=== PATIENT | male | born 1980 | race Two or more races ===

== ENCOUNTER 2023-10-06 10:11 | Emergency (ER) | payer OTHER ==
[~2023-10-06] VITALS: Ht 175.3 cm; Wt 79.5 kg
[2023-10-06 10:20] VITALS: TEMP 98.1
[2023-10-06 12:14] VITALS: BP 135/80; PULSE 80; RESP 16
[2023-10-06] MEDS: IBUPROFEN 600 MG TABLET PO ONE (13:09)
[2023-10-06] MEDS ORDERED: IBUP-1554 PO (14:26)
== END 2023-10-06 14:35 | disposition home or self-care (01) ==
LOC: EMS 10:12
DX: M48.32 Traumatic spondylopathy, cervical region (principal); V89.2XXA Person injured in unspecified motor-vehicle accident, traffic, initial encounter; Y93.89 Activity, other specified; Y92.89 Other specified places as the place of occurrence of the external cause; Y99.8 Other external cause status
CPT/HCPCS: 72040; 72070; 99284; Z7502; Z7610

== ENCOUNTER 2023-11-29 22:37 | Emergency (ER) | payer OTHER ==
[~2023-11-29] VITALS: Ht 177.8 cm; Wt 72.0 kg
[~2023-11-29 22:37] MED LIST: IBUP-1554 PO
[2023-11-29 23:03] VITALS: TEMP 101.6
[2023-11-29] MEDS ORDERED: 0.9% SODIUM CHLORIDE 10 ML SYRINGE IVP PRN ×2 (23:15)
[2023-11-29] MEDS: CefTRIAXone 1 GM/DEXTROSE 50 ML IV ONE (23:41)
[2023-11-29] MEDS: SODIUM CHLORIDE 0.9% 2,150 ML IV ONE (23:41)
[2023-11-29 23:50] LABS: EOSINOPHILS % (AUTO) 2.2 % (1.0-6.0); HEMATOCRIT 49.1 % (41-53); HEMOGLOBIN 16.8 g/dL (13.5-17.5); LYMPHOCYTES # (AUTO) 1.2 K/uL (1.0-4.8); LYMPHOCYTES % (AUTO) 17.6 % (22.0-44.0); MEAN CORPUSCULAR HEMOGLOBIN 33.7 pg (26.0-34.0); MEAN CORPUSCULAR HGB CONC 34.2 G/dL (31.0-37.0); MEAN CORPUSCULAR VOLUME 99 fL (80-100); MONOCYTES # (AUTO) 0.6 K/uL (0.1-1.0); MONOCYTES % (AUTO) 8.8 % (2.0-9.0); NEUTROPHILS # (AUTO) 4.7 K/uL (1.8-7.7); NEUTROPHILS % (AUTO) 70.4 % (40.0-70.0); PLATELET COUNT (AUTO) 197 K/uL (150-450); RED BLOOD CELL COUNT(AUTO) 4.98 MIL/uL (4.50-5.90); WHITE BLOOD COUNT (AUTO) 6.6 K/uL (4.5-11.0)
[2023-11-29 23:54] LABS: INR 1.1 (0.9-1.1); PROTHROMBIN TIME 11.3 SEC (9.4-11.6)
[2023-11-29 23:55] LABS: ANION GAP 8 mmol/L (8-16); CALCIUM, TOTAL 8.7 mg/dL (8.8-10.5); CARBON DIOXIDE 29 mmol/L (22-29); CHLORIDE 101 mmol/L (98-107); CREATININE 1.19 mg/dL (0.60-1.30); GLOMERULAR FILTR. RATE CALC > 60 mL/min (>60); GLUCOSE,RANDOM 119 mg/dL (70-110); POTASSIUM 3.6 mmol/L (3.5-5.1); SODIUM SERUM 138 mmol/L (136-145); UREA NITROGEN, BLOOD 11 mg/dL (7-18)
[2023-11-29 23:57] LABS: TROPONIN I-HIGH SENSITIVITY 6 ng/L (<76)
[2023-11-29 23:59] LABS: ALANINE AMINOTRANSFERASE 23 U/L (12-78); ALBUMIN 3.9 g/dL (3.4-5.0); ALKALINE PHOSPHATASE 85 U/L (46-116); ASPARTATE AMINOTRANSFERASE 18 U/L (15-37); BILIRUBIN,TOTAL 0.5 mg/dL (0.1-1.0); CREATINE KINASE, TOTAL ONLY 127 U/L (39-308); TOTAL PROTEIN, SERUM 8.3 g/dL (6.4-8.2)
[2023-11-30 00:02] LABS: LACTIC ACID 0.7 mmol/L (0.4-2.0)
[2023-11-30 00:47] LABS: INFLUENZA A-RTPCR,COMBO NEGATIVE (NEGATIVE); INFLUENZA B-RTPCR,COMBO NEGATIVE (NEGATIVE); RESPIRATORY SYNCYTIAL VRS-PCR NEGATIVE (NEGATIVE); SARS COVID19 RTPCR, COMBO NEGATIVE (NEGATIVE)
[2023-11-30] MEDS: ACETAMINOPHEN 325 MG TABLET PO ONE (01:13)
[2023-11-30 01:23] VITALS: BP 107/71; PULSE 83; RESP 20
[2023-11-30 01:51] LABS: APPEARANCE,URINE CLEAR (CLEAR); BILIRUBIN,URINE NEGATIVE (NEGATIVE); COLOR,URINE COLORLESS (YELLOW); GLUCOSE, URINE (UA) NEGATIVE (NEGATIVE); KETONES,URINE NEGATIVE (NEGATIVE); LEUKOCYTE ESTERASE ,URINE NEGATIVE (NEGATIVE); NITRATE,URINE NEGATIVE (NEGATIVE); OCCULT BLOOD,URINE NEGATIVE (NEGATIVE); PH,URINE 5.5 (5.0-8.0); PROTEIN,URINE NEGATIVE (NEGATIVE); SPECIFIC GRAVITIY, URINE 1.009 (1.003-1.030); UROBILINOGEN,URINE <=1.0 mg/dL (<=1.0)
[2023-11-30] MEDS ORDERED: AZIT250T9 PO (01:58)
== END 2023-11-30 02:22 | disposition home or self-care (01) ==
LOC: EMS 22:56
DX: J98.4 Other disorders of lung (principal); R50.9 Fever, unspecified; Z20.822 Contact with and (suspected) exposure to COVID-19
CPT/HCPCS: 99291; 96365; 0241U; 80053; 81003; 82550; 83605; 83880; 84484; 85025; 85610; 87040; 87430; 36415; 71045; 93005; 84145; J0696; J7030